=== PATIENT | male | born 1950 | race Hispanic/Latino ===

== ENCOUNTER → 2017-12-04 | Day surgery (SDC) | payer BC ==
[2017-11-27 11:28] LABS: BASOPHILS # (AUTO) 0.1 (0.0-0.1); BASOPHILS % 0.7 % (0.0-1.0); EOSINOPHILS # (AUTO) 0.2 (0.0-0.4); EOSINOPHILS % 2.8 % (0.0-6.0); HEMATOCRIT 42.2 % (38.2-49.6); LYMPHOCYTES # (AUTO) 1.3 (1.0-3.2); LYMPHOCYTES % 17.9 % (18.0-39.1); MEAN CORPUSCULAR HEMOGLOBIN 29.6 pg (28-32); MEAN CORPUSCULAR HGB CONC 33.2 g/dL (31-35); MEAN CORPUSCULAR VOLUME 89.2 fL (81-99); MONOCYTES # (AUTO) 0.6 (0.2-0.8); MONOCYTES % 8.2 % (4.4-11.3); NEUTROPHILS # (AUTO) 5.1 (2.1-6.9); PLATELET COUNT 247 x10e3/uL (140-360); RED BLOOD COUNT 4.73 x10e6/uL (4.3-5.7); RED CELL DISTRIBUTION WIDTH 12.9 % (11.7-14.4)
[2017-11-27 11:54] LABS: ALANINE AMINOTRANSFERASE 21 IU/L (0-55); ALBUMIN 4.1 g/dL (3.5-5.0); ALBUMIN/GLOBULIN RATIO 1.3 (0.8-2.0); ALKALINE PHOSPHATASE 59 IU/L (40-150); ANION GAP 14.3 mmol/L (8-16); BLOOD UREA NITROGEN 23 mg/dL (7-26); BUN/CREATININE RATIO 25 (6-25); CALCIUM 9.6 mg/dL (8.4-10.2); CARBON DIOXIDE 25 mmol/L (22-29); CHLORIDE 107 mmol/L (98-107); CREATININE, SERUM 0.93 mg/dL (0.72-1.25); EST GLOMERULAR FILTRATION RATE > 60 ML/MIN (60-); GLUCOSE 99 mg/dL (74-118); POTASSIUM 4.3 mmol/L (3.5-5.1); SODIUM 142 mmol/L (136-145)
[2017-11-27 13:22] LABS: ANISOCYTOSIS SLIGHT; BAND NEUTROPHILS % (MANUAL) 4 %; EOSINOPHILS % (MANUAL) 5 % (0-7); LYMPHOCYTES % (MANUAL) 10 % (19-48); MONOCYTES % (MANUAL) 4 % (3.4-9.0); NEUTROPHILS % (MANUAL) 77 % (40-74); PLATELET ESTIMATE ADEQUATE; PLATELET MORPHOLOGY COMMENT NORMAL; RBC MORPHOLOGY COMMENT NORMAL
--- NOTE | 2017-11-27 15:03 | Diagnostic Imaging Report ---
ADDENDUM #1 EXAMINATION: CHEST 2 VIEWS INDICATION: Chest pain. Preop for hernia surgery. Preop COMPARISON: None FINDINGS: TUBES and LINES: None. LUNGS: Lungs are well inflated. Lungs are clear. There is no evidence of pneumonia or pulmonary edema. PLEURA: No pleural effusion or pneumothorax. HEART AND MEDIASTINUM: The cardiomediastinal silhouette is unremarkable. BONES AND SOFT TISSUES: No acute osseous lesion. Soft tissues are unremarkable. UPPER ABDOMEN: No free air under the diaphragm. IMPRESSION: No acute thoracic abnormality. Signed by: Dr. Salvador Kirkland M.D. on 12/08/2017 1:38 PM ORIGINAL REPORT EXAMINATION: CHEST 2 VIEWS INDICATION: Preop COMPARISON: None FINDINGS: TUBES and LINES: None. LUNGS: Lungs are well inflated. Lungs are clear. There is no evidence of pneumonia or pulmonary edema. PLEURA: No pleural effusion or pneumothorax. HEART AND MEDIASTINUM: The cardiomediastinal silhouette is unremarkable. BONES AND SOFT TISSUES: No acute osseous lesion. Soft tissues are unremarkable. UPPER ABDOMEN: No free air under the diaphragm. IMPRESSION: No acute thoracic abnormality. Signed by: Dr. Salvador Kirkland M.D. on 11/27/2017 2:58 PM
[~2017-12-04] MED LIST: BACITRACIN 50,000 UNIT VIAL ONE; BACITRACIN ZINC 15 GM OINT ONE; BUPIVACAINE 0.25%/EPI 30ML SDV INJ ONE; CEFAZOLIN SOD 1 GM VIAL IV ONE; CEFAZOLIN SOD 1 GM VIAL ONE; DEXAMETHASONE SOD PHOS INJ 4 MG/ML VIAL IV ONE; FENTANYL CITRATE/PF 100MCG/2 ML INJ ONE; GLYCOPYRROLATE INJ 1MG/ 5 ML SYR IV ONE; KETOROLAC TROMETHAMINE 30 MG/ML VIAL IV ONE; LIDOCAINE HCL 2% LOCAL INJ 5 ML SDV VIAL INJ ONE; MIDAZOLAM HCL 2 MG/2 ML VIAL ONE; NEOSTIGMINE 5 MG/5ML SYR IV ONE; ONDANSETRON HCL INJ 2 MG/ML VIAL IV ONE; PROPOFOL IV EMULSION 10 MG/ML 20 ML VIAL IV ONE; ROCURONIUM BROMIDE 10 MG/ML 5ML VIAL IV ONE; SAW PALMETTO160 MG PO; SEVOFLURANE INHAL SOLN 250 ML PEN BTL INH ONE
--- NOTE | 2017-12-04 10:58 | Operative Report ---
DATE OF PROCEDURE: December 04, 2017 PREOPERATIVE DIAGNOSIS: Periumbilical ventral hernia. POSTOPERATIVE DIAGNOSIS: Periumbilical ventral hernia. PROCEDURE PERFORMED: Repair of periumbilical ventral hernia with: 1. Proceed ventral patch medium-size mesh. 2. Flat polypropylene mesh, 3 x 6 inches. ANESTHESIA: General endotracheal. ESTIMATED BLOOD LOSS: Minimal. DRAINS: None. COMPLICATIONS: None. 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 INTRAOPERATIVE FINDINGS: The patient had an umbilical hernia with herniation of properitoneal fat, and superior to that, there was a 2nd hernia separate from the umbilical one in the epigastric region with herniation of properitoneal fat. The umbilicus was removed, and then the PVP patch was placed through the superior defect which also covered the umbilical defect, and then a flat polypropylene mesh, 3 x 6 inches, was placed as an overlay patch to reinforce the previous repair. DESCRIPTION OF PROCEDURE: With the patient lying on the operative table in the supine position, after administration of general endotracheal anesthesia, he was prepped and draped for repair of periumbilical ventral hernia. An elliptical incision was made around the umbilicus, and the dissection was carried down through the skin and subcutaneous tissue. The umbilical skin and the subcutaneous fat along with the hernia sac were excised en bloc down to the hernia, which consisted of the omentum. The omentum was then partially excised and then clamped with 2-0 silk and then allowed to retract. A 2nd defect was seen superior to that. Then the properitoneal fat in that location was tied off and excised. We gained free access to the abdominal wall. We decided to place the Proceed ventral patch mesh medium size in the superior space in the superior defect that was slightly larger. It did happen to cover the umbilical defect. We deployed the mesh in the intra-abdominal location, laying flat against the abdominal wall, taking care to avoid any interposition of tissue between the mesh and the abdominal wall. We then secured the PVP mesh to the fascia through the straps with a series of interrupted 2-0 Ethibond sutures that were also placed in the superior and inferior part of the mesh to prevent any rotation. Then we loosely approximated the fascia over the previous repair with interrupted 2-0 Ethibond sutures in the epigastric hernia. Then we also loosely approximated the fascia in the umbilical defect. At this point, we placed a t 3 x 6 cm flat mesh as an overlay patch over the fascia in the mid abdomen and secured it to the to the fascia with a series of interrupted 2-0 Ethibond sutures. The repair appeared to be strong. The mesh was lying flat. We then infiltrated the mesh with 0.25% Marcaine with epinephrine and then irrigated the wound. The sponge and instrument count was pronounced correct. Then we closed the wounds using interrupted 2-0 chromic for the soft tissues. The umbilical dimple was recreated using #0 Vicryl in the fascia and incorporated the subcuticular plane in that location to the fascia and to the skin creating a dimple. Then we closed the skin using a series of interrupted 3-0 silk vertical mattress. We infiltrated the skin with 0.25% Marcaine with epinephrine also. A sterile dressing was applied. A binder was placed. The patient tolerated the procedure well and was taken to the recovery room in stable condition. Job#: [id number]
[2017-12-04 11:25] VITALS: BP 127/76
== END | disposition home or self-care (01) ==
LOC: OR 05:19
PROVIDERS: ATTEND Surgery
DX: K43.6 Other and unspecified ventral hernia with obstruction, without gangrene (principal); Z83.71 Family history of colonic polyps; Z87.891 Personal history of nicotine dependence; Z01.810 Encounter for preprocedural cardiovascular examination; Z01.812 Encounter for preprocedural laboratory examination; Z01.811 Encounter for preprocedural respiratory examination
CPT/HCPCS: 36415; 49250; 49561; 49568; 71046; 80053; 85025; 88302; 93005; C1781 ×2; J0690; J1100; J1885; J2001; J2250; J2405; J3490